=== PATIENT | female | born 1990 | race Caucasian/White ===

== ENCOUNTER 2020-10-14 01:09 | Emergency (ER) | payer MEDICAID ==
[2020-10-14] MEDS ORDERED: Sodium Chloride 0.9% 10 ML Syringe FLUSH PRN (01:25)
[2020-10-14] MEDS ORDERED: Pantoprazole 40 MG in Sodium Chloride 0.9% 10 ML IV ONE (01:25)
[2020-10-14] MEDS ORDERED: Sodium Chloride 0.9% 2.5 ML Syringe FLUSH PRN (01:25)
[2020-10-14] MEDS ORDERED: Alum Hydrox/Mag Hydrox/Simeth 15 ML, Lidocaine 2% 5 ML PO ONE ×2 (01:27)
--- NOTE | 2020-10-14 01:30 | EDM.PDOC ---
ED HPI GENERAL MEDICAL PROBLEM - General Chief Complaint: General Stated Complaint: PT HAS A BURNING FEELING IN HER CHEST Time Seen by Provider: 10/14/20 01:17 - History of Present Illness INITIAL COMMENTS - FREE TEXT/NARRATIVE: History of present illness: [] This patient suffered indigestion about the time she went to bed tonight. She did not do cavalier particularly spicy food. She suffered indigestion with burning in the upper anterior chest along the retrosternal area. The burning was severe but not relieved with multiple Tums. She has heartburn frequently and usually relieved with Tums. She was on I in the past. As far as cardiovascular risk the patient is a non-smoker whose family history is negative for significant early heart disease and she is not diabetic hypertensive or treated for cholesterol. She is on oral contraceptives. As far as thromboembolic disease the family history is negative personal history is negative and she has no recent immobilization surgery or long trip. She is on control pills. Patient is moderately stressed out because of the pandemic and having 4 children and not knowing when or if they are going to school. Review of systems: As per history of present illness and below otherwise all systems reviewed and negative. Past medical history: As per history of present illness and as reviewed below otherwise noncontributory. Surgical history: As per history of present illness and as reviewed below otherwise noncontributory. Social history: No reported history of drug or alcohol abuse. Family history: As per history of present illness and as reviewed below otherwise noncontributory. Physical exam: Constitutional - well developed, well-nourished and in no acute distress HEENT - normocephalic, no evidence of trauma - external nose and mouth normal - no mass in neck and no JVD - mucosae moist EYES - full EOM, PERRL, no icterus - no evidence of inflammation, injection, or drainage Respiratory - no respiratory distress, equal bilateral expansion, lungs clear to auscultation and no abnormal lung sounds Cardiovascular - Regular Rhythm with S1 and S2 appreciated and no murmur, gallop or rub. GI - abdomen soft without distension or organomegaly - normal bowel sounds - no guard or rebound Musculoskeletal no gross deformity of long bones or joints - no tenderness, swelling or edema Neurologic - Alert and oriented times four - CN II-XII grossly intact - motor sensory and coordination symmetrically normal Psychiatric - appropriate mood and affect with normal thought content Hematologic - No petechiae or purpura - mucosa appropriate color and sclera not pale - normal nail bed color and refill Integument - no rash or evidence of trauma - normal turgor Diagnostics: [] Therapeutics: [] Impression: [] Plan: [] Definitive disposition and diagnosis as appropriate pending reevaluation and review of above. chest Pain Score (Numeric/FACES): 8 - Related Data Allergies Allergy/AdvReac Type Severity Reaction Status Date / Time Penicillins Allergy Rash Verified 10/14/20 01:15 Home Meds: Home Meds FLUoxetine [PROzac] 0 mg PO DAILY 10/14/20 [History] Pantoprazole Sodium [Protonix] 40 mg PO DAILY #30 tablet. 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: Neurological History: Reports: None Psychiatric History: Reports: None Endocrine/Metabolic History: Reports: None Hematologic History: Reports: None Oncologic (Cancer) History: Reports: None Dermatologic History: Reports: None - Infectious Disease History Infectious Disease History: Reports: Chicken Pox - Past Surgical History Head Surgeries/Procedures: Reports: None GI Surgical History: Reports: Cholecystectomy Social & Family History - Family History Family Medical History: No Pertinent Family History - Tobacco Use Tobacco Use Status *Q: Never Tobacco User - Caffeine Use Caffeine Use: Reports: Coffee - Recreational Drug Use Recreational Drug Use: No ED ROS GENERAL - Review of Systems Review Of Systems: Comprehensive ROS is negative, except as noted in HPI. ED EXAM, GENERAL - Physical Exam Exam: See Below Free Text/Narrative:: My physical exam as in the HPI #1 Interpretation EKG Interpretation Comments: EEG done 10/14/2020 at 1:21 AM and interpreted at 124. Sinus rhythm. Heart rate 71. DC interval 188. QT 399. Dinosaur 58. Normal QRS. Normal ST and T. Compared to prior EKG there is no change. Impression normal EKG Course - Vital Signs Text/Narrative:: Patient improved with the treatment. She is low risk for cardiac disease. Her troponins negative and EKG is normal. Plan to treat his reflux. Last Recorded V/S: Last Vital Signs Temp 36.7 C 10/14/20 02:02 Pulse 68 10/14/20 02:02 Resp 16 10/14/20 02:02 BP 138/75 10/14/20 02:02 Pulse Ox 98 10/14/20 02:02 - Orders/Labs/Meds Orders: Active Orders 24 hr Category Date Time Status EKG Documentation Completion [RC] AM Care 10/14/20 01:25 Active Sodium Chloride 0.9% [Saline Flush] Med 10/14/20 01:25 Active 10 ml FLUSH ASDIRECTED PRN Sodium Chloride 0.9% [Saline Flush] Med 10/14/20 01:25 Active 2.5 ml FLUSH ASDIRECTED PRN Saline Lock Insert [OM.PC] Stat Oth 10/14/20 01:25 Ordered Medication Orders Sodium Chloride (Saline Flush) 10 ml FLUSH ASDIRECTED PRN PRN Reason: Keep Vein Open Last Admin: 10/14/20 01:52 Dose: 10 ml Documented by: OTTO Sodium Chloride (Saline Flush) 2.5 ml FLUSH ASDIRECTED PRN PRN Reason: Keep Vein Open Last Admin: 10/14/20 01:52 Dose: 2.5 ml Documented by: OTTO Labs: Laboratory Tests 10/14/20 Range/Units 01:29 Troponin I < 0.050 (0.000-0.056) ng/mL Meds: Medications Generic Name Dose Route Start Last Admin Trade Name Freq PRN Reason Stop Dose Admin Sodium Chloride 10 ml 10/14/20 01:25 10/14/20 01:52 Saline Flush FLUSH 10 ml ASDIRECTED PRN Administration Keep Vein Open Sodium Chloride 2.5 ml 10/14/20 01:25 10/14/20 01:52 Saline Flush FLUSH 2.5 ml ASDIRECTED PRN Administration Keep Vein Open Discontinued Medications Generic Name Dose Route Start Last Admin Trade Name Freq PRN Reason Stop Dose Admin Al Hydroxide/Mg Hydroxide 15 0 ml 10/14/20 01:27 10/14/20 01:52 ml/ Lidocaine HCl 5 ml PO 10/14/20 01:28 20 each ONETIME ONE Administration Pantoprazole Sodium 40 mg/ 10 mls @ 300 mls/hr 10/14/20 01:25 10/14/20 01:51 Sodium Chloride IV 10/14/20 01:26 300 mls/hr NOW ONE Administration Departure - Departure Time of Disposition: 02:19 Disposition: Home, Self-Care 01 Condition: Good Clinical Impression: Gastroesophageal reflux - Discharge Information Instructions: Gastroesophageal Reflux Disease, Adult, [id number] Referrals: PCP,None [Primary Care Provider] - Forms: ED Department Discharge Additional Instructions: [facility] - Primary Care [address] [place] [address] [facility] [address] [place] [id number] The following information is given to patients seen in the emergency department who are being discharged to home. This information is to outline your options for follow-up care. We provide all patients seen in our emergency department with a follow-up referral. The need for follow-up, as well as the timing and circumstances, are variable depending upon the specifics of your emergency department visit. If you don't have a primary care physician on staff, we will provide you with a referral. We always advise you to contact your personal physician following an emergency department visit to inform them of the circumstance of the visit and for follow-up with them and/or the need for any referrals to a consulting specialist. The emergency department will also refer you to a specialist when appropriate. This referral assures that you have the opportunity for follow-up care with a specialist. All of these measure are taken in an effort to provide you with optimal care, which includes your follow-up. Under all circumstances we always encourage you to contact your private physician who remains a resource for coordinating your care. When calling for follow-up care, please make the office aware that this follow-up is from your recent emergency room visit. If for any reason you are refused follow-up, please contact the [facility] Emergency Department at and asked to speak to the emergency department charge nurse. Sepsis Event Note (ED) - Evaluation Sepsis Screening Result: No Definite Risk - Focused Exam Vital Signs: Vital Signs Temp Pulse Resp BP Pulse Ox 10/14/20 02:02 36.7 C 68 16 138/75 98 10/14/20 01:40 36.7 C 73 16 143/66 H 98 10/14/20 01:16 36.4 C 81 18 152/89 H - My Orders Last 24 Hours: My Active Orders 10/14/20 01:25 EKG Documentation Completion [RC] AM Sodium Chloride 0.9% [Saline Flush] 10 ml FLUSH ASDIRECTED PRN Sodium Chloride 0.9% [Saline Flush] 2.5 ml FLUSH ASDIRECTED PRN Saline Lock Insert [OM.PC] Stat - Assessment/Plan Last 24 Hours: My Active Orders 10/14/20 01:25 EKG Documentation Completion [RC] AM Sodium Chloride 0.9% [Saline Flush] 10 ml FLUSH ASDIRECTED PRN Sodium Chloride 0.9% [Saline Flush] 2.5 ml FLUSH ASDIRECTED PRN Saline Lock Insert [OM.PC] Stat
== END 2020-10-14 02:47 | disposition home or self-care (01) ==
LOC: MW.ED 01:09
DX: K21.9 Gastro-esophageal reflux disease without esophagitis (principal); Z88.0 Allergy status to penicillin
CPT/HCPCS: 36415; 84484; 93005; 96374; 99283; A9270; C9113; 93010